=== PATIENT | male | born 1990 ===

== ENCOUNTER 2021-04-17 15:36 | Inpatient (IN) | payer OTHER ==
[~2021-04-17] VITALS: Ht 175.3 cm; Wt 94.6 kg
[2021-04-17 22:33] LABS: Basophils # (auto) 0.1 10 ^3/uL (0-0.2); Basophils % (auto) 0.8 % (0.0-2.0); Eosinophils # (auto) 0.1 10 ^3/uL (0-0.8); Eosinophils % (auto) 1.8 % (0.0-7.0); Hematocrit 42.9 % (41.0-53.0); Hemoglobin 14.2 g/dL (13.5-17.5); Lymphocytes # (auto) 2.4 10 ^3/uL (0.4-5.4); Lymphocytes % (auto) 32.4 % (10.0-50.0); Mean Corpuscular Hemoglobin 30.3 pg (28.0-32.0); Mean Corpuscular Hgb Conc. 33.1 g/dL (32.0-36.0); Mean Corpuscular Volume 91.8 fL (80.0-100.0); Monocytes # (auto) 0.6 10 ^3/uL (0-1.3); Monocytes % (auto) 8.8 % (0.0-12.0); Neutrophils # (auto) 4.1 10 ^3/uL (1.6-8.6); Neutrophils % (auto) 56.2 % (37.0-80.0); Nucleated Red Blood Cells % 0.1 %; Red Blood Cells 4.67 10^6/uL (4.5-5.90); Red Cell Distribution Width 14.7 % (11.8-14.3); White Blood Cell 7.3 10^3/uL (4.4-10.8)
[2021-04-17 22:47] LABS: INR 1.01 (0.9-1.15)
[2021-04-17 22:53] LABS: Calcium 9.2 mg/dL (8.5-10.1); Potassium 3.9 mmol/L (3.5-5.1)
[2021-04-17 22:56] LABS: BUN/Creatinine Ratio 9.2; Bilirubin, Total 0.7 mg/dL (0.2-1.0); CRP High Sensitivity 0.56 mg/dL (< 0.3); Total Protein 7.2 g/dL (6.4-8.2)
[2021-04-17] MEDS ORDERED: HYDROcodone-ACET 5/325MG TAB PO PRN (23:45)
[2021-04-17] MEDS ORDERED: ONDANSETRON HCL 4 MG/2 ML VIAL IV PRN (23:45)
[2021-04-17] MEDS ORDERED: HYDROmorphone HCL 2 MG/ML VL IV PRN (23:45)
[2021-04-17] MEDS ORDERED: HEPARIN SODIUM (PORCINE) 5000 UNITS/ML 1ML VIAL IV ONE (23:45)
[2021-04-18] MEDS: PIPERACILLIN-TAZOB 3.375GM 100 ML IV SCH ×4 (01:22→18:29)
[2021-04-18] MEDS: HEPARIN DRIP/D5W 100UNITS/ML 250 ML IV SCH ×3 (02:13→21:43)
[2021-04-18 03:09] VITALS: BP 118/70
[2021-04-18 05:00] VITALS: BP 126/72
[2021-04-18 09:20] LABS: INR 1.07 (0.9-1.15)
[2021-04-18 09:22] LABS: Partial Thromboplastin Time 108.3 sec (23.6-33.0)
[2021-04-18] MEDS: DOXYCYCLINE 100MG/250ML 250 ML IV SCH ×2 (10:30→21:41)
[2021-04-18 14:57] LABS: INR 1.03 (0.9-1.15); Partial Thromboplastin Time 48.6 sec (23.6-33.0)
[2021-04-18 21:15] LABS: INR 1.04 (0.9-1.15); Partial Thromboplastin Time 46.1 sec (23.6-33.0)
[2021-04-18 22:00] VITALS: BP 130/65
[2021-04-19] MEDS: PIPERACILLIN-TAZOB 3.375GM 100 ML IV SCH ×4 (00:45→18:29)
[2021-04-19 04:30] LABS: Basophils # (auto) 0.1 10 ^3/uL (0-0.2); Eosinophils # (auto) 0.2 10 ^3/uL (0-0.8); Eosinophils % (auto) 3.6 % (0.0-7.0); Hematocrit 44.8 % (41.0-53.0); Hemoglobin 15.2 g/dL (13.5-17.5); Lymphocytes # (auto) 2.2 10 ^3/uL (0.4-5.4); Lymphocytes % (auto) 41.3 % (10.0-50.0); Mean Corpuscular Hemoglobin 30.9 pg (28.0-32.0); Mean Corpuscular Volume 91.1 fL (80.0-100.0); Monocytes # (auto) 0.7 10 ^3/uL (0-1.3); Monocytes % (auto) 12.7 % (0.0-12.0); Neutrophils # (auto) 2.1 10 ^3/uL (1.6-8.6); Neutrophils % (auto) 40.4 % (37.0-80.0); Nucleated Red Blood Cells % 0.1 %; Red Blood Cells 4.92 10^6/uL (4.5-5.90); Red Cell Distribution Width 14.6 % (11.8-14.3); White Blood Cell 5.2 10^3/uL (4.4-10.8)
[2021-04-19 04:34] LABS: INR 1.03 (0.9-1.15); Partial Thromboplastin Time 28.3 sec (23.6-33.0)
[2021-04-19 05:00] VITALS: BP 118/62
[2021-04-19 09:00] VITALS: BP 109/64
[2021-04-19] MEDS: DOXYCYCLINE 100MG/250ML 250 ML IV SCH (09:58)
[2021-04-19 10:29] LABS: INR 1.04 (0.9-1.15); Partial Thromboplastin Time 50.3 sec (23.6-33.0)
[2021-04-19] MEDS: HEPARIN DRIP/D5W 100UNITS/ML 250 ML IV SCH (10:42)
[2021-04-19] MEDS ORDERED: VANCOMYCIN PER PHARMACY 0 MG IV SCH (11:00)
[2021-04-19] MEDS ORDERED: VANCOMYCIN 1GM/250ML 250 ML IV ONE (11:00)
[2021-04-19 13:00] VITALS: BP 120/60
[2021-04-19 15:54] LABS: Partial Thromboplastin Time 52.6 sec (23.6-33.0)
[2021-04-19] MEDS: VANCOMYCIN 1GM/250ML 250 ML IV SCH ×2 (16:30→18:29)
[2021-04-19 17:00] VITALS: BP 107/62
[2021-04-19 21:55] LABS: INR 1.03 (0.9-1.15); Partial Thromboplastin Time 26.9 sec (23.6-33.0)
[2021-04-19 22:00] VITALS: BP 138/86
[2021-04-19] MEDS ORDERED: HEPARIN DRIP/D5W 100UNITS/ML 250 ML IV SCH (22:15)
[2021-04-19] MEDS ORDERED: HEPARIN SODIUM (PORCINE) 5000 UNITS/ML 1ML VIAL IV ONE (22:15)
[2021-04-20] MEDS: VANCOMYCIN 1GM/250ML 250 ML IV SCH ×4 (01:05→23:10)
[2021-04-20] MEDS: PIPERACILLIN-TAZOB 3.375GM 100 ML IV SCH ×4 (01:05→18:08)
[2021-04-20 05:00] VITALS: BP 100/61
[2021-04-20 06:59] LABS: Basophils # (auto) 0.1 10 ^3/uL (0-0.2); Basophils % (auto) 1.4 % (0.0-2.0); Eosinophils # (auto) 0.2 10 ^3/uL (0-0.8); Eosinophils % (auto) 3.5 % (0.0-7.0); Hematocrit 44.2 % (41.0-53.0); Hemoglobin 15.2 g/dL (13.5-17.5); Lymphocytes # (auto) 1.7 10 ^3/uL (0.4-5.4); Mean Corpuscular Hemoglobin 31.2 pg (28.0-32.0); Mean Corpuscular Hgb Conc. 34.3 g/dL (32.0-36.0); Monocytes # (auto) 0.6 10 ^3/uL (0-1.3); Monocytes % (auto) 12.4 % (0.0-12.0); Neutrophils # (auto) 2.6 10 ^3/uL (1.6-8.6); Neutrophils % (auto) 49.7 % (37.0-80.0); Red Blood Cells 4.86 10^6/uL (4.5-5.90); Red Cell Distribution Width 14.9 % (11.8-14.3); White Blood Cell 5.2 10^3/uL (4.4-10.8)
[2021-04-20 07:23] LABS: BUN/Creatinine Ratio 10.4; Calcium 9.4 mg/dL (8.5-10.1)
[2021-04-20 07:31] LABS: INR 1.06 (0.9-1.15)
[2021-04-20 09:00] VITALS: BP 106/58
[2021-04-20] MEDS: HEPARIN DRIP/D5W 100UNITS/ML 250 ML IV SCH ×2 (09:18→16:14)
[2021-04-20 13:00] VITALS: BP 125/71
[2021-04-20 15:29] LABS: INR 1.03 (0.9-1.15); Partial Thromboplastin Time 42.1 sec (23.6-33.0)
[2021-04-20 17:00] VITALS: BP 127/73
[2021-04-20 22:07] LABS: INR 1.07 (0.9-1.15); Partial Thromboplastin Time 59.5 sec (23.6-33.0)
[2021-04-20 23:18] VITALS: BP 140/72
[2021-04-21] MEDS: PIPERACILLIN-TAZOB 3.375GM 100 ML IV SCH ×4 (00:41→17:47)
[2021-04-21 05:12] VITALS: BP 113/69
[2021-04-21] MEDS: HEPARIN DRIP/D5W 100UNITS/ML 250 ML IV SCH ×3 (05:15→23:32)
[2021-04-21 05:43] LABS: Basophils # (auto) 0.1 10 ^3/uL (0-0.2); Basophils % (auto) 1.3 % (0.0-2.0); Eosinophils # (auto) 0.2 10 ^3/uL (0-0.8); Eosinophils % (auto) 4.4 % (0.0-7.0); Hematocrit 44.9 % (41.0-53.0); Hemoglobin 15.3 g/dL (13.5-17.5); Lymphocytes # (auto) 2.1 10 ^3/uL (0.4-5.4); Lymphocytes % (auto) 38.3 % (10.0-50.0); Mean Corpuscular Hemoglobin 31.3 pg (28.0-32.0); Mean Corpuscular Volume 92.2 fL (80.0-100.0); Monocytes # (auto) 0.7 10 ^3/uL (0-1.3); Neutrophils # (auto) 2.3 10 ^3/uL (1.6-8.6); Nucleated Red Blood Cells % 0.1 %; Red Blood Cells 4.87 10^6/uL (4.5-5.90); Red Cell Distribution Width 14.5 % (11.8-14.3); White Blood Cell 5.4 10^3/uL (4.4-10.8)
[2021-04-21 05:54] LABS: Calcium 9.2 mg/dL (8.5-10.1); Potassium 3.7 mmol/L (3.5-5.1)
[2021-04-21 07:19] LABS: INR 1.09 (0.9-1.15)
[2021-04-21 07:21] LABS: Partial Thromboplastin Time 112.4 sec (23.6-33.0)
[2021-04-21 08:00] VITALS: BP 106/68
[2021-04-21] MEDS: VANCOMYCIN 1GM/250ML 250 ML IV SCH ×3 (08:18→23:26)
[2021-04-21 12:00] VITALS: BP 115/70
[2021-04-21 14:38] LABS: INR 1.03 (0.9-1.15); Partial Thromboplastin Time 27.7 sec (23.6-33.0)
[2021-04-21] MEDS ORDERED: HEPARIN SODIUM (PORCINE) 5000 UNITS/ML 1ML VIAL IV ONE (15:15)
[2021-04-21 16:00] VITALS: BP 114/53
[2021-04-21 22:13] LABS: INR 1.05 (0.9-1.15)
[2021-04-21 22:15] LABS: Partial Thromboplastin Time 94.2 sec (23.6-33.0)
[2021-04-21 23:20] VITALS: BP 107/60
[2021-04-22] MEDS: PIPERACILLIN-TAZOB 3.375GM 100 ML IV SCH ×4 (00:52→17:21)
[2021-04-22] MEDS: HEPARIN DRIP/D5W 100UNITS/ML 250 ML IV SCH ×2 (04:58→18:42)
[2021-04-22 05:57] VITALS: BP 105/66
[2021-04-22 06:23] LABS: INR 1.05 (0.9-1.15); Partial Thromboplastin Time 62.1 sec (23.6-33.0)
[2021-04-22] MEDS: VANCOMYCIN 1GM/250ML 250 ML IV SCH ×3 (08:40→23:42)
[2021-04-22 09:00] VITALS: BP 122/82
[2021-04-22 11:44] LABS: INR 1.05 (0.9-1.15); Partial Thromboplastin Time 59.5 sec (23.6-33.0)
[2021-04-22] MEDS ORDERED: HEPARIN DRIP/D5W 100UNITS/ML 250 ML IV SCH (12:45)
[2021-04-22 13:00] VITALS: BP 121/61
[2021-04-22 17:00] VITALS: BP 122/69
[2021-04-22 18:18] LABS: INR 1.02 (0.9-1.15); Partial Thromboplastin Time 35.8 sec (23.6-33.0)
[2021-04-22 22:00] VITALS: BP 114/63
[2021-04-23] MEDS: PIPERACILLIN-TAZOB 3.375GM 100 ML IV SCH ×5 (00:40→23:58)
[2021-04-23] MEDS: HEPARIN DRIP/D5W 100UNITS/ML 250 ML IV SCH (01:06)
[2021-04-23 01:42] LABS: INR 1.05 (0.9-1.15); Partial Thromboplastin Time 66.6 sec (23.6-33.0)
[2021-04-23 05:00] VITALS: BP 114/69
[2021-04-23 07:26] LABS: Lymphocytes % (auto) 34.4 % (10.0-50.0); Monocytes % (auto) 15.8 % (0.0-12.0); Neutrophils % (auto) 43.7 % (37.0-80.0); White Blood Cell 5.3 10^3/uL (4.4-10.8)
[2021-04-23 07:27] LABS: Basophils # (auto) 0.1 10 ^3/uL (0-0.2); Basophils % (auto) 1.3 % (0.0-2.0); Eosinophils # (auto) 0.3 10 ^3/uL (0-0.8); Eosinophils % (auto) 4.8 % (0.0-7.0); Hematocrit 47.5 % (41.0-53.0); Hemoglobin 15.6 g/dL (13.5-17.5); Lymphocytes # (auto) 1.8 10 ^3/uL (0.4-5.4); Mean Corpuscular Hemoglobin 30.1 pg (28.0-32.0); Mean Corpuscular Hgb Conc. 32.9 g/dL (32.0-36.0); Mean Corpuscular Volume 91.3 fL (80.0-100.0); Monocytes # (auto) 0.8 10 ^3/uL (0-1.3); Neutrophils # (auto) 2.3 10 ^3/uL (1.6-8.6); Nucleated Red Blood Cells % 0.1 %; Red Blood Cells 5.21 10^6/uL (4.5-5.90); Red Cell Distribution Width 14.4 % (11.8-14.3)
[2021-04-23 07:45] LABS: BUN/Creatinine Ratio 13.7; Calcium 9.2 mg/dL (8.5-10.1)
[2021-04-23] MEDS: VANCOMYCIN 1GM/250ML 250 ML IV SCH ×3 (07:59→23:58)
[2021-04-23 09:00] VITALS: BP 109/63
[2021-04-23 11:04] LABS: INR 1.07 (0.9-1.15)
[2021-04-23 11:10] LABS: Partial Thromboplastin Time 76.9 sec (23.6-33.0)
[2021-04-23 13:00] VITALS: BP 118/55
[2021-04-23 17:00] VITALS: BP 128/59
[2021-04-23 18:33] LABS: INR 1.05 (0.9-1.15); Partial Thromboplastin Time 57.5 sec (23.6-33.0)
[2021-04-23] MEDS ORDERED: HEPARIN DRIP/D5W 100UNITS/ML 250 ML IV SCH (19:45)
[2021-04-23 22:00] VITALS: BP 151/79
[2021-04-24 00:19] LABS: INR 1.07 (0.9-1.15); Partial Thromboplastin Time 54.1 sec (23.6-33.0)
[2021-04-24 05:00] VITALS: BP 135/80
[2021-04-24] MEDS: PIPERACILLIN-TAZOB 3.375GM 100 ML IV SCH ×4 (05:53→23:29)
[2021-04-24 07:03] LABS: INR 1.09 (0.9-1.15)
[2021-04-24] MEDS: VANCOMYCIN 1GM/250ML 250 ML IV SCH (08:36)
[2021-04-24 09:00] VITALS: BP 138/80
[2021-04-24] MEDS: DOXYCYCLINE 100 MG TAB/CAP PO SCH ×2 (11:33→21:31)
[2021-04-24 13:00] VITALS: BP 133/61
[2021-04-24 13:25] LABS: Basophils # (auto) 0 10 ^3/uL (0-0.2); Basophils % (auto) 0.6 % (0.0-2.0); Eosinophils # (auto) 0.1 10 ^3/uL (0-0.8); Eosinophils % (auto) 2.1 % (0.0-7.0); Hematocrit 44.2 % (41.0-53.0); Hemoglobin 15.1 g/dL (13.5-17.5); Lymphocytes % (auto) 18.9 % (10.0-50.0); Monocytes # (auto) 0.8 10 ^3/uL (0-1.3); Monocytes % (auto) 14.9 % (0.0-12.0); Neutrophils # (auto) 3.3 10 ^3/uL (1.6-8.6); Neutrophils % (auto) 63.5 % (37.0-80.0); Red Blood Cells 4.86 10^6/uL (4.5-5.90); Red Cell Distribution Width 14.2 % (11.8-14.3); White Blood Cell 5.2 10^3/uL (4.4-10.8)
[2021-04-24 15:35] LABS: INR 1.06 (0.9-1.15); Partial Thromboplastin Time 29.9 sec (23.6-33.0)
[2021-04-24] MEDS ORDERED: HEPARIN SODIUM (PORCINE) 5000 UNITS/ML 1ML VIAL IV ONE (15:45)
[2021-04-24 17:00] VITALS: BP 126/94
[2021-04-24] MEDS: HEPARIN DRIP/D5W 100UNITS/ML 250 ML IV SCH (21:45)
[2021-04-24 22:00] VITALS: BP 129/73
[2021-04-24 22:53] LABS: INR 1.09 (0.9-1.15); Partial Thromboplastin Time 62.1 sec (23.6-33.0)
[2021-04-25 05:00] VITALS: BP 113/73
[2021-04-25] MEDS: PIPERACILLIN-TAZOB 3.375GM 100 ML IV SCH ×4 (05:52→23:33)
[2021-04-25 07:47] LABS: INR 1.1 (0.9-1.15); Partial Thromboplastin Time 56.7 sec (23.6-33.0)
[2021-04-25 09:00] VITALS: BP 131/76
[2021-04-25] MEDS: DOXYCYCLINE 100 MG TAB/CAP PO SCH ×2 (10:22→21:41)
[2021-04-25 13:00] VITALS: BP 135/72
[2021-04-25 13:57] LABS: INR 1.08 (0.9-1.15); Partial Thromboplastin Time 27.6 sec (23.6-33.0)
[2021-04-25] MEDS ORDERED: HEPARIN SODIUM (PORCINE) 5000 UNITS/ML 1ML VIAL IV ONE (14:15)
[2021-04-25 17:00] VITALS: BP 112/75
[2021-04-25 21:24] LABS: INR 1.09 (0.9-1.15)
[2021-04-25] MEDS: HEPARIN DRIP/D5W 100UNITS/ML 250 ML IV SCH (21:27)
[2021-04-25 21:42] LABS: Partial Thromboplastin Time 74.3 sec (23.6-33.0)
[2021-04-26 02:44] LABS: INR 1.1 (0.9-1.15); Partial Thromboplastin Time 61.2 sec (23.6-33.0)
[2021-04-26] MEDS: HEPARIN DRIP/D5W 100UNITS/ML 250 ML IV SCH ×2 (03:05→22:41)
[2021-04-26 05:00] VITALS: BP 103/64
[2021-04-26] MEDS: PIPERACILLIN-TAZOB 3.375GM 100 ML IV SCH ×3 (05:47→18:06)
[2021-04-26 06:32] LABS: INR 1.09 (0.9-1.15); Partial Thromboplastin Time 59.7 sec (23.6-33.0)
[2021-04-26 06:47] LABS: Basophils # (auto) 0.1 10 ^3/uL (0-0.2); Eosinophils # (auto) 0.2 10 ^3/uL (0-0.8); Eosinophils % (auto) 3.1 % (0.0-7.0); Hematocrit 45.3 % (41.0-53.0); Hemoglobin 15.1 g/dL (13.5-17.5); Lymphocytes # (auto) 1.8 10 ^3/uL (0.4-5.4); Lymphocytes % (auto) 31.1 % (10.0-50.0); Mean Corpuscular Hemoglobin 30.4 pg (28.0-32.0); Mean Corpuscular Hgb Conc. 33.3 g/dL (32.0-36.0); Mean Corpuscular Volume 91.1 fL (80.0-100.0); Monocytes % (auto) 16.3 % (0.0-12.0); Neutrophils # (auto) 2.8 10 ^3/uL (1.6-8.6); Neutrophils % (auto) 47.5 % (37.0-80.0); Nucleated Red Blood Cells % 0.1 %; Red Blood Cells 4.97 10^6/uL (4.5-5.90); Red Cell Distribution Width 14.3 % (11.8-14.3); White Blood Cell 5.9 10^3/uL (4.4-10.8)
[2021-04-26 09:00] VITALS: BP 138/73
[2021-04-26] MEDS: DOXYCYCLINE 100 MG TAB/CAP PO SCH ×2 (09:23→21:52)
[2021-04-26 13:00] VITALS: BP_SYST 108; BP_SYST 131; BP_DIAS 71; BP_DIAS 81
[2021-04-26 17:00] VITALS: BP 110/64
[2021-04-26 22:00] VITALS: BP 125/76
[2021-04-27] MEDS: PIPERACILLIN-TAZOB 3.375GM 100 ML IV SCH ×2 (00:49→06:06)
[2021-04-27 05:00] VITALS: BP 120/66
[2021-04-27 06:19] LABS: INR 1.08 (0.9-1.15)
[2021-04-27 06:28] LABS: Partial Thromboplastin Time 103.2 sec (23.6-33.0)
[2021-04-27] MEDS ORDERED: APIXABAN 5 MG TAB PO SCH (10:00)
[2021-05-04] MEDS ORDERED: APIXABAN 5 MG TAB PO SCH (10:00)
== END 2021-04-27 12:07 | DRG 301 ==
LOC: EEVIPCON 15:36 → ER 15:36 → OVERFLOW 23:37 → WEST WING 04-18 02:57
PROVIDERS: ADMIT Specialist; ATTEND Specialist
DX: I82.621 Acute embolism and thrombosis of deep veins of right upper extremity (principal); Z20.822 Contact with and (suspected) exposure to COVID-19; Z83.3 Family history of diabetes mellitus
CPT/HCPCS: 36415; 73200; 80048; 80053; 80202; 83605; 85025; 85610; 85652; 85730; 86141; 87040; 87426; 93971; 96374; G0378; J2543; J3490